=== PATIENT | female | born 1965 | race Hispanic/Latino ===

== ENCOUNTER → 2018-06-29 | Outpatient (REF) | payer SELFPAY ==
[~2018-06-29] MED LIST: FERROUS SULFAT325 MG PO; LEVOTHYROXIN100 MCG PO; LISINOPRIL10 MG PO; LOSARTAN POT50 MG PO; METO25TAB PO; ZOFRAN ODT4 MG PO
== END | disposition home or self-care (01) | DRG 761 ==
LOC: ULTRASND 06-04 09:30 → BADA 06-04 10:30 → ULTRASND 06-18 09:30
PROVIDERS: ATTEND Surgery
DX: N92.0 Excessive and frequent menstruation with regular cycle (principal); N83.291 Other ovarian cyst, right side

== ENCOUNTER 2018-07-02 08:05 | Day surgery (SDC) | payer SELFPAY ==
[2018-07-02 10:03] VITALS: BP 145/66
== END 2018-07-02 10:21 | disposition home or self-care (01) | DRG 392 ==
LOC: ENDO 08:05
PROVIDERS: ATTEND Surgery
PROC: 0DJD8ZZ Inspection of Lower Intestinal Tract, Via Natural or Artificial Opening Endoscopic (ICD-10-PCS; principal; 2018-07-02)
DX: R19.5 Other fecal abnormalities (principal)

== ENCOUNTER → 2018-07-16 | Outpatient (REF) | payer SELFPAY ==
[2018-07-16 12:21] VITALS: BP 152/74
== END | disposition home or self-care (01) | DRG 951 ==
LOC: BADA 10:15
PROVIDERS: ATTEND Surgery
DX: Z09 Encounter for follow-up examination after completed treatment for conditions other than malignant neoplasm (principal)

== ENCOUNTER 2021-11-06 11:16 | Emergency (ER) | payer SELFPAY ==
[2021-11-06] VITALS (9 sets, daily range): BP systolic 132–166; BP diastolic 59–81
[~2021-11-06] VITALS: Ht 152.4 cm; Wt 100.0 kg
[2021-11-06 12:13] LABS: HEMATOCRIT 42.5 % (37.0-47.0); HEMOGLOBIN 13.9 g/dl (12.0-16.0); IMMATURE GRANULOCYTES 0.2 % (0.0-5.0); MEAN CORPUSCULAR HGB 29.9 pG CALC (26.0-32.0); MEAN CORPUSCULAR HGB CONC 32.7 g/dL CAL (32.0-36.0); NEUT# 4.51 thou/uL (2.00-7.15); RED BLOOD COUNT 4.65 mill/uL (4.20-5.60); RED CELL DISTRI WIDTH 12.7 % (11.5-15.5)
[2021-11-06 12:19] LABS: MEAN CELL VOLUME 91.4 fL CALC (80.0-100.0)
[2021-11-06 12:21] LABS: ALBUMIN 4.3 g/dL (3.2-5.0); ALKALINE PHOSPHATASE 86 u/l (38-126); ANION GAP 9 (6-22 (CALC)); BUN 16 mg/dL (7-17); BUN/CREATININE RATIO 22 (12-20 (CALC)); CARBON DIOXIDE 29 mmol/l (22-30); CHLORIDE 105 mmol/l (95-108); CREATININE 0.7 mg/dL (0.5-1.0); GFR FOR AFR.AMER. > 60 ML/MIN (>=60 (CALC)); GFR OTHER RACES > 60 ML/MIN (>=60 (CALC)); LIPASE 190 u/l (23-300); POTASSIUM 3.7 mmol/l (3.5-5.1); SGOT/AST 31 u/l (14-36); SODIUM 139 mmol/l (137-146); TOTAL PROTEIN 7.6 g/dL (6.3-8.2)
[2021-11-06 12:27] LABS: BILIRUBIN, TOTAL 0.6 mg/dL (0.0-1.4)
[2021-11-06 13:15] LABS: URINE BILIRUBIN - DIPSTICK NEGATIVE (NEGATIVE); URINE BLOOD DIPSTICK NEGATIVE (NEGATIVE); URINE COLOR YELLOW; URINE GLUCOSE - DIPSTICK NEGATIVE (NEGATIVE); URINE KETONE NEGATIVE (NEGATIVE); URINE LEUK ESTERASE NEGATIVE (NEGATIVE); URINE NITRITE - DIPSTICK NEGATIVE (Negative); URINE PH 6.5 (4.5-8.0); URINE PROTEIN - DIPSTICK TRACE mg/dL (NEG-TRACE); URINE UROBILINOGEN - DIPSTICK 0.2 E.U./dL (0.2)
== END 2021-11-06 14:01 | disposition home or self-care (01) | DRG 149 ==
LOC: ED 11:16
DX: R42 Dizziness and giddiness (principal); H53.8 Other visual disturbances; I10 Essential (primary) hypertension; Z20.822 Contact with and (suspected) exposure to COVID-19